=== PATIENT | female | born 1975 | race Caucasian/White ===

== ENCOUNTER 2019-12-10 16:49 | Outpatient (CLI) | payer OTHER, SELFPAY ==
--- NOTE | ~2019-12-10 | MR_ITS ---
EXAMINATION: MR knee RT wo con DATE: 12/10/2019 17:42 INDICATION: Chronic right knee pain TECHNIQUE: Magnetic resonance imaging (MRI) of the right knee was performed without intravenous contr ast. Sequences included coronal PD-weighted FSE, coronal PD-weighted FS FSE, sagittal T2-weighted FS E, sagittal PD-weighted FS FSE and axial PD weighted fat saturated FSE. COMPARISON: None. FINDINGS: Medial compartment: Medial meniscus is normal. Partial-thickness cartilage loss with chondral surface irregularity, mild irregularity of the underlying articular cortex and mild subarticular edema along the anterior to jasper tral weightbearing medial femoral condyle. Lateral compartment: Lateral meniscus is normal. Articular cartilage is normal. Patellofemoral compartment: Deep chondral ulceration with subarticular edema at the cephalad two thirds of the patellar apical ri dge and lateral side of the medial facet. There is some delamination near the bone chondral interface along the lateral margin of the region of ulceration with additional underlying subarticular edema a t the superomedial aspect of the lateral facet. Deep chondral fissuring with small region of cortical irregularity at the inferior aspect of the medial trochlea. Ligaments and tendons: Anterior and posterior cruciate ligaments are normal. The medial collateral ligament and fibular marta ateral ligament complex are normal. Enthesophytes and minimal tendinopathy at the patellar insertion of the distal quadriceps tendon. Patellar tendon is normal. The visualized medial and lateral hamstri ng tendons as well as the iliotibial band are normal. Fluid: Small right knee joint effusion. No loose osteochondral bodies identified. Osseous/other: Normal marrow signal aside from the previous noted regions of subarticular edema. No fracture or path ologic marrow replacing process. IMPRESSION: 1. 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 Reviewed, dictated and finalized at location B. IMPRESSION: 1. 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
== END 2019-12-10 16:50 | disposition home or self-care (01) ==
PROVIDERS: PCP Nurse Practitioner Family; Visit Provider Orthopaedic Surgery
DX: M17.11 Unilateral primary osteoarthritis, right knee (principal)
CPT/HCPCS: 73721